=== PATIENT | female | born 1955 | race Caucasian/White ===

== ENCOUNTER 2020-05-07 18:26 | Emergency (ER) | payer OTHER, SELFPAY ==
[2020-05-07 18:38] VITALS: BP 174/101; PULSE 107; RESP 18; TEMP 37.3; O2SAT 93
[2020-05-07 18:59] LABS: Basophils Percent Auto 0.2 % (0.2-1.2); Hemoglobin 14.6 g/dL (12.0-15.0); Immature Granulocyte Absolute 0.04 K/mm3 (0.00-0.031); Immature Granulocyte Percent A 0.4 % (0-0.5); Lymphocytes Absolute Auto 1.34 K/mm3 (0.9-3.2); Lymphocytes Percent Auto 14.5 % (18.3-44.2); Mean Corpuscular Hemoglobin 29.2 pg (26-34); Mean Platelet Volume 10.8 fl (7.4-10.4); Monocytes Absolute Auto 0.6 K/mm3 (0.1-0.6); Monocytes Percent Auto 6.3 % (2.6-8.5); Neutrophils Absolute Auto 7.3 K/mm3 (1.3-6.7); Neutrophils Percent Auto 78.6 % (45.5-73.1); Platelet Count Result 265 k/mm3 (150-375); Red Cell Distribution Width 12.9 % (11.5-14.5); White Blood Count 9.3 K/mm3 (4.5-10.0)
[2020-05-07 19:14] LABS: Alanine Aminotransferase 30 U/L (4-35); Alkaline Phosphatase 81 U/L (38-126); Anion Gap 11 mmol/L (8-16); Aspartate Amino Transferase 26 U/L (14-36); Bilirubin,Total 0.5 mg/dL (0.2-1.3); Blood Urea Nitrogen 16 mg/dL (7-17); Calcium 8.8 mg/dL (8.4-10.2); Carbon Dioxide 24 mmol/L (22-30); Chloride 101 mmol/L (98-107); Estimated CRCL calculation 106 ml/min; Estimated Glomerular Filt Rate > 60; Glucose 171 mg/dL (65-105); Lipase 89 U/L (23-300); Potassium 3.5 mmol/L (3.4-5.0); Sodium 136 mmol/L (137-145)
[2020-05-07 19:45] LABS: Albumin Level 3.8 g/dL (3.5-5.1)
--- NOTE | 2020-05-07 21:33 | ED.NAVMDI ---
HPI - Nausea/Vomiting/Diarrhea General Chief complaint: Nausea/Vomiting/Diarrhea Stated complaint: COVID Positive, Not Getting Better Time Seen by Provider: 05/07/20 21:13 History of Present Illness HPI Narrative: Diagnosed with COVID-19 2 weeks ago. Oringinally having fever, cough, SOB, nausea, and vomting. They fevers have subsided. She is still feeling nauseated and fatigued. She does have some residual CLARK. Related Data Allergies Allergy/AdvReac Type Severity Reaction Status Date / Time No Known Allergies Allergy Verified 05/07/20 22:31 Review of Systems Review of Systems: All systems reviewed & are unremarkable except as noted in HPI and below Constitutional: Constitutional: Denies fever(s) Eyes: Eyes: Denies no additional eye complaints ENT: Denies dizziness Cardiovascular: Cardiovascular: Denies chest pain Respiratory: Respiratory: Reports dyspnea on exertion Gastrointestinal: Gastrointestinal: Denies abdominal pain and Reports nausea Genitourinary: Genitourinary: Denies hematuria Neurologic: Denies confusion, Denies dizziness and Denies weakness [facility] Past Medical History Medical History (Updated 05/07/20 @ 21:35 by Sanju Hancock MD) Healthy adult Social History Social History (Updated 05/07/20 @ 21:35 by Sanju Hancock MD) Smoking status: Never smoker Gender identity (if verbalized by the patient): Female Exam Const: General: healthy appearing, no acute distress and alert Orientation/consciousness: patient oriented x3 HENMT: Head: normal to inspection Neck: Neck: normal visual inspection and no lymphadenopathy Chest: Chest palpation & inspection: no tenderness Resp: Effort & Inspection: normal respiratory effort Auscultation: clear to auscultation bilaterally, no rales, no rhonchi and no wheezes Cardio: Jugular venous distension: no JVD Rate: regular rate Rhythm: regular rhythm Heart sounds: no murmurs GI: Inspection: non-distended GI Palp: Yes Soft to palpation and No Tenderness to palpation present (GI) Skin: General skin exam: normal color Neuro: General: patient oriented x3 and moves all extremities Speech: normal speech Extrem: General: no edema Psych: Appearance: well kempt Affect: normal affect Course Vital Signs Vital signs: Vital Signs Temperature 37.3 C 05/07/20 18:38 Pulse Rate 107 H 05/07/20 18:38 Respiratory Rate 18 05/07/20 18:38 Blood Pressure 174/101 H 05/07/20 18:38 Pulse Oximetry 93 05/07/20 18:38 Temperature 37.3 C 05/07/20 18:38 Pulse Rate 92 05/07/20 22:19 Respiratory Rate 17 05/07/20 22:19 Blood Pressure 141/83 H 05/07/20 22:19 Pulse Oximetry 94 05/07/20 22:19 MDM - Nausea/Vomiting/Diarrhea Differential Diagnosis Differential diagnosis: Likely gastroenteritis and other (choledocolithiasis, SBO, IBS) Medical Records Attestation: I reviewed the patient's medical records. Lab Data Attestation: I reviewed the patient's lab results. Result diagrams: 05/07/20 18:50 05/07/20 18:50 Labs: Lab Results 05/07/20 05/07/20 Range/Units 18:50 18:50 WBC 9.3 (4.5-10.0) K/mm3 RBC 5.00 (4.2-5.4) M/mm3 Hgb 14.6 (12.0-15.0) g/dL Hct 43.0 (37.0-47.0) % MCV 86.0 (80-100) fl MCH 29.2 (26-34) pg MCHC 34.0 (32-36) g/dl RDW 12.9 (11.5-14.5) % Plt Count 265 (150-375) k/mm3 MPV 10.8 H (7.4-10.4) fl Immature Gran % (Auto) 0.4 (0-0.5) % Neut % (Auto) 78.6 H (45.5-73.1) % Lymph % (Auto) 14.5 L (18.3-44.2) % [place] % (Auto) 6.3 (2.6-8.5) % Eos % (Auto) 0.0 (0-4.4) % Baso % (Auto) 0.2 (0.2-1.2) % Lymph # (Auto) 1.34 (0.9-3.2) K/mm3 [place] # (Auto) 0.6 (0.1-0.6) K/mm3 Eos # (Auto) 0.0 (0-0.3) K/mm3 Baso # (Auto) 0.0 (0.0-0.1) K/mm3 Abs Immat Gran (auto) 0.04 H (0.00-0.031) K/mm3 Absolute Neuts (auto) 7.3 H (1.3-6.7) K/mm3 Absolute Nucleated RBC 0.0 (0.0-0.012) K/mm3 Nucleated RBC % 0.0 (0
[2020-05-07] MEDS: ONDANSETRON HCL ODT 4 MG TABLET PO (22:18)
[2020-05-07 22:19] VITALS: BP 141/83; PULSE 92; RESP 17; O2SAT 94
== END 2020-05-07 22:50 | disposition home or self-care (01) ==
PROVIDERS: Emergency Medicine Emergency Medical Services; Emergency Provider Emergency Medicine
DX: R11.0 Nausea (principal); U07.1 COVID-19
CPT/HCPCS: 36415; 80053; 83690; 85025; 99283; A9270